=== PATIENT | female | born 2000 | race Caucasian/White ===

== ENCOUNTER 2021-12-23 00:19 | Emergency (ER) | payer OTHER ==
[~2021-12-23] VITALS: Ht 165.1 cm; Wt 50.9 kg
[2021-12-23 01:00] VITALS: BP 141/99
== END 2021-12-23 05:14 | disposition home or self-care (01) ==
LOC: ER 00:20
DX: S69.92XA Unspecified injury of left wrist, hand and finger(s), initial encounter (principal); V87.8XXA Person injured in other specified noncollision transport accidents involving motor vehicle (traffic), initial encounter; Y93.89 Activity, other specified; Y92.89 Other specified places as the place of occurrence of the external cause; Y99.8 Other external cause status
CPT/HCPCS: 29125; 73110; 73130; 99284; A4565; A6449